=== PATIENT | male | born 1960 | race Caucasian/White ===

== ENCOUNTER 2022-09-11 00:14 | Inpatient (IN) | payer OTHER, MEDICAID ==
[2022-09-11] VITALS (8 sets, daily range): BP systolic 104–130
[~2022-09-11] VITALS: Ht 180.3 cm; Wt 86.2 kg
[~2022-09-11 00:14] MED LIST: ALBU8.5H8 INH; ASPI-1457 PO; ASPI-934 PO; BUSP10TA PO; CHOL500037 PO; DIAZ10TA PO; DILANTIN; FENO135C PO; FENO145T PO; FLUT1DIS INH; FOLI-43 PO; GABA-529 PO; HYDR-3927 PO; HYDR-4284 PO; HYDR4TAB26 PO; KEPRA; LEVE500T9; LEVE500T9 PO; LEVE500T99 PO; LIP40 PO; LISI2.5T48 PO; METF1000 PO; METO25TA3 PO; MORP30TA PO; OMEP20CA15 PO; OMEP20CA4 PO; PHEN100C4 PO; TOPAMAX; TOPI200T PO; TOPI200T16 PO; ZOLP10TA2 PO; pro air
--- NOTE | 2022-09-11 00:30 | NUR ---
Patient to ER bed 04 to gown for evaluation. Side rails up. Report given to ANGELA DWYER.
[2022-09-11] MEDS ORDERED: VANCOMYCIN HCL 1,000 MG in D5W 250 ML IV ONE (01:15)
[2022-09-11] MEDS ORDERED: ONDANSETRON HCL 4 MG/2 ML VIAL IVP ONE (01:15)
[2022-09-11] MEDS ORDERED: MORPHINE 4 MG INJ. 4 MG/ML VIAL IVP ONE (01:15)
[2022-09-11] MEDS ORDERED: NS 1000 ML IV.SOLN IV ONE (01:15)
[2022-09-11] MEDS ORDERED: PIPERACILLIN/TAZO 3.375 GM in D5W 50 ML IV ONE (01:15)
[2022-09-11] MEDS ORDERED: PIPERACILLIN/TAZOBACTAM 3.375 GM/VIAL (ZOSYN) IV ONE (01:24)
--- NOTE | 2022-09-11 01:30 | NUR ---
ER Dr.DE UMANA at bedside examining patient.
[2022-09-11 01:34] LABS: BASOPHILS % (AUTO) 0.6 % (0.0-2.0); EOSINOPHILS # (AUTO) 0.3 K/uL (0.0-0.4); EOSINOPHILS % (AUTO) 4.9 % (0.0-4.0); HEMATOCRIT 41.5 % (36-54); HEMOGLOBIN 13.9 g/dL (14.0-18.0); LYMPHOCYTES # (AUTO) 0.9 K/uL (1.0-5.5); LYMPHOCYTES % (AUTO) 13.1 % (20.5-51.5); MEAN CORPUSCULAR HEMOGLOBIN 26 pg (27-31); MEAN CORPUSCULAR HGB CONC 33 % (32-36); MEAN CORPUSCULAR VOLUME 78 fL (79.0-98.0); MONOCYTES # (AUTO) 0.6 K/uL (0.0-1.0); MONOCYTES % (AUTO) 9.4 % (1.7-9.3); NEUTROPHILS # (AUTO) 4.8 K/uL (1.8-7.7); PLATELET COUNT (AUTO) 294 K/uL (130-430); RED BLOOD CELL COUNT(AUTO) 5.32 MIL/uL (4.2-6.2); RED CELL DISTRIBUTION WIDTH 15.2 % (9.0-15.0); WHITE BLOOD COUNT (AUTO) 6.6 K/uL (4.8-10.8)
[2022-09-11 01:46] LABS: ALANINE AMINOTRANSFERASE 36 U/L (12-78); ALBUMIN 3.5 g/dL (3.4-4.8); ANION GAP 8 (5-15); ASPARTATE AMINOTRANSFERASE 23 U/L (10-37); CALCIUM 8.2 mg/dL (8.4-11.0); CHLORIDE 102 mmol/L (98-107); CREATININE 1.91 mg/dL (0.55-1.30); GFR AFRICAN AMERICAN 46 mL/min (>90); GLUCOSE 204 mg/dL (70-99); TOTAL BILIRUBIN 0.3 mg/dL (0.0-1.0); UREA NITROGEN, BLOOD 30 mg/dL (8-21)
[2022-09-11 01:49] LABS: C-REACTIVE PROTEIN QUANT 0.8 mg/dL (0-0.5)
[2022-09-11 01:55] LABS: ERYTHROCYTE SEDIMENTATION RATE 3 MM/HR (0-15)
[2022-09-11] MEDS ORDERED: HYDROcodone/ACETAMIN 5-325 MG TAB (NORCO/ VICODIN) PO ONE (02:15)
[2022-09-11] MEDS ORDERED: VANCOMYCIN HCL 1000 MG/VIAL IV ONE (02:28)
[2022-09-11] MEDS ORDERED: EMPA10TA PO (03:14)
[2022-09-11] MEDS ORDERED: SITA100T11 PO (03:14)
[2022-09-11] MEDS ORDERED: PIPERACILLIN/TAZO 3.375 GM in NS 50 ML IV ONE (03:15)
[2022-09-11] MEDS ORDERED: HYDROcodone/ACETAMIN 10-325 MG TAB PO PRN ×2 (03:15→16:30)
--- NOTE | 2022-09-11 03:25 | NUR ---
Admit bed requested Patient will be admitted to care of . Admitted to [facility] unit. Diagnosis CELLULITIS Inpatient (Yes or No) YES Observation (Yes or No) N Orientation concerns or request close to nursing station (Yes or No) N Covid Status N/A On vent or bipap N Isolation requirements N Needs a sitter N From Home (Yes or if No enter name of facility) Y Requires Dialysis (Yes or No) N Med Rec Completed (Yes of No) Y
--- NOTE | 2022-09-11 03:45 | NUR ---
ADMISSION NOTE Received patient from ER via gurney. Patient admitted with diagnosis of CELLULITIS LEFT ARM. Patient is awake, alert, oriented X 4. Patient oriented to hospital room, call light, toileting, pain management and safety-teach back done. Personal belongings checked and Belongings List documented. Call light within reach.
--- NOTE | 2022-09-11 03:45 | NUR ---
Patient will be admitted to care of DR WHITE. Admitted to [facility] unit. Will go to room 119. Belongings list completed. Complete and up to date summary report printed. SBAR report to MELISSA be given at bedside with opportunity for questions.
[2022-09-11 03:56] LABS: BILIRUBIN,URINE NEGATIVE (NEGATIVE); BLOOD, URINE NEGATIVE (NEGATIVE); CLARITY/URINE CLEAR (CLEAR); COLOR,URINE YELLOW (YELLOW); GLUCOSE,URINE 3+ (NEGATIVE); KETONES,URINE NEGATIVE (NEGATIVE); LEUKOCYTE ESTERASE ,URINE NEGATIVE (NEGATIVE); NITRITE, URINE NEGATIVE (NEGATIVE); PROTEIN URINE NEGATIVE (NEGATIVE); UROBILINOGEN,URINE 0.2 (0.2-1.0)
[2022-09-11 03:58] LABS: BACTERIA,URINE None Seen /HPF (None Seen); RBC,URINE 0-3 /HPF (0-3); WBC,URINE 0-3 /HPF (0-3)
--- NOTE | 2022-09-11 07:11 | NUR ---
CLOSING NOTES PATIENT IS LYING IN BED AXO 4 WITH NO S/S OF DISTRESS OF DISCOMFORT. SAFETY CHECKS ARE DONE AND CALL LIGHT WITHIN REACH,
--- NOTE | 2022-09-11 07:30 | NUR ---
MORNING ROUNDS: PATIENT AWAKE ON THE BED. IV AT RIGHT AC INTACT. LEFT HAND /ARM SWOLLEN.SKIN IS INTACT.CALL LIGHT WITH IN REACH. BED LOCKED AT LOWEST POSITION. NO DISTRESS.
--- NOTE | 2022-09-11 09:24 | NUR ---
PAIN MEDS: PATIENT C/O LEFT ARM PAIN.DUE NORCO PO GIVEN PER REQUEST. WITH NO PROBLEM.
--- NOTE | 2022-09-11 12:30 | NUR ---
RN ROUNDING: PATIENT HAVING LUNCH. NO DISTRESS.
[2022-09-11] MEDS ORDERED: INSULIN REGULAR, HUMAN 100 UNITS/ML, 3 ML VIAL (humuLIN R) SUBCUT PRN (16:30)
[2022-09-11] MEDS ORDERED: NALOXONE HCL 0.4 MG/ML AMP (NARCAN) IVP PRN (16:30)
[2022-09-11] MEDS ORDERED: NON-FORMULARY MEDICATION (Cholecalciferol* (Vitamin D3*) 50,000 UNIT) PO SCH (16:30)
[2022-09-11] MEDS: NACL 0.9% 1,000 ML IV SCH (17:14)
[2022-09-11] MEDS: PIPERACILLIN/TAZO 3.375/DEX-IS 50 ML IV SCH (17:14)
--- NOTE | 2022-09-11 17:16 | NUR ---
IV FLUIDS STARTED: NS @ 70CC/H STARTED AND IV ZOSYN GIVEN ORDERED BY DR WHITE.
--- NOTE | 2022-09-11 18:32 | NUR ---
EVENING ROUNDS: PATIENT HAD DINNER. IV FLUIDS RUNNING. LEFT HAND/ARM STILL SWOLLEN. ELEVATED WITH PILLOWS. NO ACUTE DISTRESS.
--- NOTE | 2022-09-11 19:15 | NUR ---
change of shift.pt.presents quiescent affect;calm,resting.pt.presents edema:lt.upper extremity:shouder to hand.pt.capable to provide digit movement x5 sense tactile stimulation touch warm.no c/o pain,nausea.iv access location;rt.antecubital intact; patent.iv fluids infusing.pt.capable to ambulate;un-assisted.general status stable.respiratory status stable;unlabored@room call light/telephone w/in access of the pt.
[2022-09-11] MEDS: ALBUTEROL SULFATE 0.083% 2.5 MG/3 ML VIAL.NEB INH SCH (19:56)
[2022-09-11] MEDS: BUDESONIDE 0.5 MG/2 ML AMPUL.NEB INH SCH (19:57)
--- NOTE | 2022-09-11 20:00 | NUR ---
pt.assessed.v/s assessed values wnl.no c/o pain,nausea.iv access intact;patent.pt.apprised snacks/beverages are available w/in the shift.no requests posited@this hour.call light/telephone w/in access of the pt.
--- NOTE | 2022-09-11 20:30 | NUR ---
blood glucose assessed value:106m/dl.
[2022-09-11] MEDS ORDERED: FLUTICASONE 100 mCg/SALMETEROL 50 mCg DISKUS W.DEV INH SCH (21:00)
[2022-09-11] MEDS: ENOXAPARIN SODIUM 30 MG/0.3 ML SYRINGE SUBCUT SCH ×2 (21:00→21:07)
[2022-09-11] MEDS ORDERED: PHENYTOIN 100 MG CAPSULE PO SCH (21:00)
[2022-09-11] MEDS: ZOLPIDEM TARTRATE 5 MG TABLET PO SCH ×2 (21:00→21:04)
[2022-09-11] MEDS: busPIRone HCL 5 MG TABLET PO SCH ×2 (21:00→21:04)
[2022-09-11] MEDS ORDERED: ATORVASTATIN 20 MG TABLET PO SCH (21:00)
--- NOTE | 2022-09-11 21:00 | NUR ---
2100p medications administered.pt.capable to ingest the po medications w/out difficulty.no c/o pain,nausea.pt.requested snacks/juice provided.pt.requested review of his medications administered:if meds correspond to the home medications list. medications reviewed.pt.had refused some medications.to review medications w in am.09/12/22.
[2022-09-11] MEDS: levETIRAcetam 500 MG TABLET PO SCH (21:05)
[2022-09-11] MEDS: METOPROLOL SUCCINATE 25 MG TAB.SR.24H (TOPROL XL) PO SCH (21:06)
--- NOTE | 2022-09-11 22:00 | NUR ---
pt.assessed.pt.quiescent;resting.no c/o pain,nausea.no requests posited@this hour.pt.capable to reposition self. call light/telephone w/in access of the pt.
[2022-09-12] MEDS ORDERED: VANCOMYCIN HCL 1,250 MG in NS 250 ML IV SCH ×2
--- NOTE | 2022-09-12 | NUR ---
pt.assessed.v/s assessed values wnl.no c/o pain,nausea.no requests posited@this hour.pt.ambulated to the restroom. gait assessed to/from the restroom wnl.iv access intact;patent midnight abx;ivpb doses;zosyn/vancomycin administered. call light/telephone w/in access of the pt.
[2022-09-12 00:16] VITALS: BP_SYST 116
[2022-09-12] MEDS: PIPERACILLIN/TAZO 3.375/DEX-IS 50 ML IV SCH ×4 (00:30→15:57)
[2022-09-12] MEDS: ALBUTEROL SULFATE 0.083% 2.5 MG/3 ML VIAL.NEB INH SCH ×4 (01:40→19:31)
--- NOTE | 2022-09-12 02:00 | NUR ---
pt.assessed.pt.quiescent;somnolent.iv access intact;patent.per flacc pain mgx pt.absent facial grimaces/body posturing.pt.capable to reposition self.call light/telephone w/in access of the pt.
--- NOTE | 2022-09-12 04:00 | NUR ---
pt.assessed.pt.quiescent.per flacc pain mgx pt.absent facial grimaces/body posturing.iv access intact;patent.pt.capable to reposition self.call light/telephone w/in access of the pt.
[2022-09-12 05:21] LABS: BASOPHILS % (AUTO) 0.3 % (0.0-2.0); EOSINOPHILS # (AUTO) 0.3 K/uL (0.0-0.4); EOSINOPHILS % (AUTO) 4.5 % (0.0-4.0); HEMATOCRIT 39.6 % (36-54); HEMOGLOBIN 13.2 g/dL (14.0-18.0); LYMPHOCYTES # (AUTO) 1.8 K/uL (1.0-5.5); LYMPHOCYTES % (AUTO) 27.8 % (20.5-51.5); MEAN CORPUSCULAR HEMOGLOBIN 26 pg (27-31); MEAN CORPUSCULAR HGB CONC 33 % (32-36); MEAN CORPUSCULAR VOLUME 79 fL (79.0-98.0); MONOCYTES # (AUTO) 0.8 K/uL (0.0-1.0); MONOCYTES % (AUTO) 11.8 % (1.7-9.3); NEUTROPHILS # (AUTO) 3.6 K/uL (1.8-7.7); NEUTROPHILS % (AUTO) 55.6 % (40.0-70.0); PLATELET COUNT (AUTO) 268 K/uL (130-430); RED BLOOD CELL COUNT(AUTO) 5.03 MIL/uL (4.2-6.2); RED CELL DISTRIBUTION WIDTH 15.3 % (9.0-15.0); WHITE BLOOD COUNT (AUTO) 6.4 K/uL (4.8-10.8)
[2022-09-12 05:28] LABS: CALCIUM 7.9 mg/dL (8.4-11.0); CREATININE 1.99 mg/dL (0.55-1.30); URIC ACID 4.2 mg/dL (2.4-7.0)
[2022-09-12] MEDS: NACL 0.9% 1,000 ML IV SCH (06:00)
--- NOTE | 2022-09-12 06:30 | NUR ---
pt.assessed.no c/o pain,nausea.blood glucose assessed value;131mg/dl.pt.requested coffee provided.zosyn abx ivpb 0600a dose administered.call light/telephone placed w/in access of the pt.
[2022-09-12] MEDS: BUDESONIDE 0.5 MG/2 ML AMPUL.NEB INH SCH ×2 (07:38→19:31)
[2022-09-12 08:00] VITALS: BP_SYST 116
[2022-09-12] MEDS ORDERED: FENOFIBRATE NANOCRYSTALLIZED 48 MG TABLET (TRICOR) PO SCH (09:00)
[2022-09-12] MEDS ORDERED: ASPIRIN 81 MG TABLET(ECOTRIN) PO SCH (09:00)
[2022-09-12] MEDS ORDERED: GABAPENTIN 100 MG CAPSULE PO SCH (09:00)
[2022-09-12] MEDS: METOPROLOL SUCCINATE 25 MG TAB.SR.24H (TOPROL XL) PO SCH (09:00)
[2022-09-12] MEDS ORDERED: EMPAGLIFLOZIN 10 MG TABLET PO SCH (09:00)
[2022-09-12] MEDS ORDERED: OMEPRAZOLE Non-Formulary 20 MG CAPSULE.DR PO SCH (09:00)
[2022-09-12] MEDS ORDERED: lisinopriL 5 MG TABLET PO SCH (09:00)
[2022-09-12] MEDS ORDERED: PANTOPRAZOLE SODIUM 40 MG TAB PO SCH (09:00)
[2022-09-12] MEDS: busPIRone HCL 5 MG TABLET PO SCH (09:00)
[2022-09-12] MEDS ORDERED: FOLIC ACID 1 MG TABLET PO SCH (09:00)
[2022-09-12] MEDS: levETIRAcetam 500 MG TABLET PO SCH (09:17)
[2022-09-12 12:11] VITALS: BP_SYST 124
--- NOTE | 2022-09-12 15:55 | NUR ---
Report received from ANGELA Burgess for continuity of care. Patient in stable condition. VSS.
[2022-09-12 16:00] VITALS: BP_SYST 134
--- NOTE | 2022-09-12 17:08 | NUR ---
Hand off report given to Raymundo Arrington RN with Registry.
--- NOTE | 2022-09-12 18:20 | NUR ---
Patient resting and watching TV. IV fluids noted. Patient able to ambulate to restroom. Eating appropriately. Will continue to monitor.
--- NOTE | 2022-09-12 18:41 | NUR ---
Report given to net lead developer RN for continuity of care. Patient in stable condition. No distress noted.
== END 2022-09-12 21:00 | disposition home or self-care (01) | DRG 603 ==
LOC: SED 00:14 → SMU 03:14
PROVIDERS: ADMIT Family Medicine; ATTEND Family Medicine
DX: L03.114 Cellulitis of left upper limb (principal); G40.909 Epilepsy, unspecified, not intractable, without status epilepticus; I12.9 Hypertensive chronic kidney disease with stage 1 through stage 4 chronic kidney disease, or unspecified chronic kidney disease; E11.22 Type 2 diabetes mellitus with diabetic chronic kidney disease; N18.9 Chronic kidney disease, unspecified; Z88.8 Allergy status to other drugs, medicaments and biological substances; Z91.010 Allergy to peanuts; Z79.899 Other long term (current) drug therapy
CPT/HCPCS: 36415; 80048; 80053; 81000; 83605; 83735; 84484; 84550; 85025; 85651-TC; 86140; 87040; 87086; 93005; 94640; 94760; 96365; 96375; 99285; J1815; J2270; J2405; J2543; J3370; J7050; J7613; J7626